=== PATIENT | female | born 1995 | race Caucasian/White ===

== ENCOUNTER → 2020-09-05 | Day surgery (SDC) | payer BC ==
[~2020-09-05] MED LIST: Bupivacaine 0.5%/EPINEPHrine 1:200,000 50 ML MDV ONE; Dexamethasone 4 MG/ML 5 ML MDV ONE; Diatrizoate Meglumine/Diatrizoate Sodium 37% 120 ML Bottle PO ONE; HYDROmorphone 0.5 MG/0.5 ML Syringe IVPUSH PRN; Iopamidol 612 MG/ML 100 ML Bottle IVPUSH ONE; Ketorolac 30 MG/ML SDV ONE; Lactated Ringers 1,000 ML IV SCH; Lactated Ringers 1,000 ML ONE; Lidocaine 1% 4 ML ONE; Midazolam 1 MG/ML 2 ML SDV ONE; Ondansetron 4 MG/2 ML SDV IVPUSH ONE; Ondansetron 4 MG/2 ML SDV ONE; Propofol 200 MG/20 ML SDV ONE; Rocuronium 50 MG/5 ML Vial ONE; Sodium Chloride 0.9% 1,000 ML IV STA; Sodium Chloride 0.9% 10 ML Syringe FLUSH SCH; Succinylcholine/Sod PF 100 MG/5 ML SYRINGE IV ONE; cefOXitin 1 GM in Premix Bag 1 BAG IV ONE; diphenhydrAMINE 50 MG/ML SDV IVPUSH PRN; ePHEDrine 50 MG/ML SDV IVPUSH PRN; fentaNYL 100 MCG/2 ML SDV IVPUSH PRN; fentaNYL 250 MCG/5 ML SDV ONE
[2020-09-05] MEDS: Sodium Chloride 0.9% 10 ML Syringe FLUSH PRN ×2 (10:24→12:00)
--- NOTE | 2020-09-05 10:29 | EDM.PDOC ---
ED HPI GENERAL MEDICAL PROBLEM - General Chief Complaint: Abdominal Pain Stated Complaint: LOW ABDOMINAL PAIN Time Seen by Provider: 09/05/20 10:00 Source of Information: Reports: Patient History Limitations: Reports: No Limitations - History of Present Illness INITIAL COMMENTS - FREE TEXT/NARRATIVE: The patient presents with lower abdominal pain. This started late Sunday night with nausea. She has no vomiting. Yesterday the pain would come and go and today it is constant. She has no dysuria or diarrhea. Her last normal menstrual period was 08/11. She says there is a possibility she is . She has no fever, chills, cough, chest pain, or shortness of breath. She still has her appendix and gallbladder. Onset: Gradual Duration: Day(s): (2) Location: Reports: Abdomen Quality: Reports: Sharp Severity: Moderate Improves with: Reports: None Worsens with: Reports: None Associated Symptoms: Reports: Nausea/Vomiting. Denies: Chest Pain, Cough, Fever/Chills, Headaches, Shortness of Breath Lower Abdomen Pain Score (Numeric/FACES): 2 - Related Data Allergies Allergy/AdvReac Type Severity Reaction Status Date / Time amoxicillin Allergy Rash Verified 09/05/20 10:04 Home Meds: Home Meds . [No Known Home Meds] 09/05/20 [History] Past Medical History - Past Health History Medical/Surgical History: Denies Medical/Surgical History Social & Family History - Tobacco Use Tobacco Use Status *Q: Never Tobacco User - Recreational Drug Use Recreational Drug Use: No ED ROS GENERAL - Review of Systems Review Of Systems: See Below Constitutional: Reports: No Symptoms HEENT: Reports: No Symptoms Respiratory: Reports: No Symptoms Cardiovascular: Reports: No Symptoms Endocrine: Reports: No Symptoms GI/Abdominal: Reports: Abdominal Pain, Nausea. Denies: Diarrhea, Vomiting : Reports: No Symptoms Musculoskeletal: Reports: No Symptoms ED EXAM, GI/ABD - Physical Exam Exam: See Below Exam Limited By: No Limitations General Appearance: Alert, No Apparent Distress Ears: Normal External Exam Nose: Normal Inspection Head: Atraumatic, Normocephalic Neck: Normal Inspection Respiratory/Chest: No Respiratory Distress, Lungs Clear, Normal Breath Sounds Cardiovascular: Regular Rate, Rhythm, No Edema, No Murmur GI/Abdominal Exam: Soft, No Organomegaly, No Mass, Tender (Moderate tenderness to the right lower abdomen) Back Exam: Normal Inspection Extremities: Normal Inspection Course - Vital Signs Last Recorded V/S: Last Vital Signs Temp 98 F 09/05/20 10:02 Pulse 66 09/05/20 10:02 Resp 16 09/05/20 10:02 BP 130/94 H 09/05/20 10:02 Pulse Ox 97 09/05/20 10:02 - Orders/Labs/Meds Orders: Active Orders 24 hr Category Date Time Status Patient Status [ADT] Routine ADT 09/05/20 13:12 Active Peripheral IV Care [RC] . DIRECTED Care 09/05/20 10:16 Active Abdomen Pelvis w Cont [CT] Stat Exams 09/05/20 10:16 Taken CORONAVIRUS COVID-19 CHRISTOS [MOLEC] Stat Lab 09/05/20 12:30 Ordered Lactated Ringers [Ringers, Lactated] 1,000 ml Med 09/05/20 12:45 Active IV ASDIRECTED Sodium Chloride 0.9% [Saline Flush] Med 09/05/20 12:00 Active 10 ml FLUSH ASDIRECTED Sodium Chloride 0.9% [Saline Flush] Med 09/05/20 10:16 Active 10 ml FLUSH ASDIRECTED PRN ED Antiemetic Medication Reflex [OM.PC] Stat Oth 09/05/20 10:16 Ordered Peripheral IV Insertion Adult [OM.PC] Stat Oth 09/05/20 10:16 Ordered Schedule Procedure [COMM] Stat Ot 09/05/20 13:12 Ordered Medication Orders Lactated Ringer's (Ringers, Lactated) 1,000 mls @ 75 mls/hr IV ASDIRECTED [facility] Last Admin: 09/05/20 12:43 Dose: 75 mls/hr Documented by: BERYL Sodium Chloride (Sodium Chloride 0.9% 10 Ml Syringe) 10 ml FLUSH ASDIRECTED PRN PRN Reason: Keep Vein Open Last Admin: 09/05/20 12:00 Dose: 10 ml Documented by: Admin: 09/05/20 10:24 Dose: 10 ml Documented by: BERYL Sodium Chloride (Sodium Chloride 0.9% 10 Ml Syringe) 10 ml FLUSH ASDIRECTED [facility] Labs: Laboratory Tests 09/05/20 09/05/20 09/05/20 Range/Units 10:20 10:25 10:25 WBC 5.67 (3.98-10.04) K/mm3 RBC 4.60 (3.98-5.22) M/mm3 Hgb 14.7 (11.2-15.7) gm/dl Hct 42.3 (34.1-44.9) % MCV 92.0 (79.4-94.8) fl MCH 32.0 (25.6-32.2) pg MCHC 34.8 (32.2-35.5) g/dl RDW Std Deviation 41.6 (36.4-46.3) fL Plt Count 182 (182-369) K/mm3 MPV 11.0 (9.4-12.3) fl Neut % (Auto) 56.4 (34.0-71.1) % Lymph % (Auto) 30.9 (19.3-51.7) % [place] % (Auto) 9.0 (4.7-12.5) % Eos % (Auto) 2.6 (0.7-5.8) Baso % (Auto) 1.1 (0.1-1.2) % Neut # (Auto) 3.20 (1.56-6.13) K/mm3 Lymph # (Auto) 1.75 (1.18-3.74) K/mm3 [place] # (Auto) 0.51 H (0.24-0.36) K/mm3 Eos # (Auto) 0.15 (0.04-0.36) K/mm3 Baso # (Auto) 0.06 (0.01-0.08) K/mm3 Sodium 143 (136-145) mEq/L Potassium 4.1 (3.5-5.1) mEq/L Chloride 107 (98-107) mEq/L Carbon Dioxide 26 (21-32) mEq/L Anion Gap 14.1 (5-15) BUN 16 (7-18) mg/dL Creatinine 1.0 (0.55-1.02) mg/dL Est Cr Clr Drug Dosing 60.70 mL/min Estimated GFR (MDRD) > 60 (>60) mL/min BUN/Creatinine Ratio 16.0 (14-18) Glucose 93 (70-99) mg/dL Calcium 8.7 (8.5-10.1) mg/dL Total Bilirubin 1.1 H (0.2-1.0) mg/dL AST 14 L (15-37) U/L ALT 20 (14-59) U/L Alkaline Phosphatase 69 (46-116) U/L Total Protein 7.3 (6.4-8.2) g/dl Albumin 4.2 (3.4-5.0) g/dl Globulin 3.1 gm/dL Albumin/Globulin Ratio 1.4 (1-2) Lipase 121 (73-393) U/L HCG, Qual (NEGATIVE) Urine Color Yellow (Yellow) Urine Appearance Clear (Clear) Urine pH 6.5 (5.0-8.0) Ur Specific [place] > or = 1.030 (1.005-1.030) Urine Protein Negative (Negative) Urine Glucose (UA) Negative (Negative) Urine Ketones Negative (Negative) Urine Occult Blood Negative (Negative) Urine Nitrite Negative (Negative) Urine Bilirubin Negative (Negative) Urine Urobilinogen 0.2 (0.2-1.0) Ur Leukocyte Esterase Negative (Negative) Urine RBC 0-5 (0-5) /hpf Urine WBC 0-5 (0-5) /hpf Ur Squamous Epith Cells 0-5 (0-5) /hpf Urine Bacteria Moderate H (FEW) /hpf Urine Mucus Few (FEW) /hpf 09/05/20 Range/Units 10:25 WBC (3.98-10.04) K/mm3 RBC (3.98-5.22) M/mm3 Hgb (11.2-15.7) gm/dl Hct (34.1-44.9) % MCV (79.4-94.8) fl MCH (25.6-32.2) pg MCHC (32.2-35.5) g/dl RDW Std Deviation (36.4-46.3) fL Plt Count (182-369) K/mm3 MPV (9.4-12.3) fl Neut % (Auto) (34.0-71.1) % Lymph % (Auto) (19.3-51.7) % [place] % (Auto) (4.7-12.5) % Eos % (Auto) (0.7-5.8) Baso % (Auto) (0.1-1.2) % Neut # (Auto) (1.56-6.13) K/mm3 Lymph # (Auto) (1.18-3.74) K/mm3 [place] # (Auto) (0.24-0.36) K/mm3 Eos # (Auto) (0.04-0.36) K/mm3 Baso # (Auto) (0.01-0.08) K/mm3 Sodium (136-145) mEq/L Potassium (3.5-5.1) mEq/L Chloride (98-107) mEq/L Carbon Dioxide (21-32) mEq/L Anion Gap (5-15) BUN (7-18) mg/dL Creatinine (0.55-1.02) mg/dL Est Cr Clr Drug Dosing mL/min Estimated GFR (MDRD) (>60) mL/min BUN/Creatinine Ratio (14-18) Glucose (70-99) mg/dL Calcium (8.5-10.1) mg/dL Total Bilirubin (0.2-1.0) mg/dL AST (15-37) U/L ALT (14-59) U/L Alkaline Phosphatase (46-116) U/L Total Protein (6.4-8.2) g/dl Albumin (3.4-5.0) g/dl Globulin gm/dL Albumin/Globulin Ratio (1-2) Lipase (73-393) U/L HCG, Qual Negative (NEGATIVE) Urine Color (Yellow) Urine Appearance (Clear) Urine pH (5.0-8.0) Ur Specific [place] (1.005-1.030) Urine Protein (Negative) Urine Glucose (UA) (Negative) Urine Ketones (Negative) Urine Occult Blood (Negative) Urine Nitrite (Negative) Urine Bilirubin (Negative) Urine Urobilinogen (0.2-1.0) Ur Leukocyte Esterase (Negative) Urine RBC (0-5) /hpf Urine WBC (0-5) /hpf Ur Squamous Epith Cells (0-5) /hpf Urine Bacteria (FEW) /hpf Urine Mucus (FEW) /hpf Meds: Medications Generic Name Dose Route Start Last Admin Trade Name Freq PRN Reason Stop Dose Admin Lactated Ringer's 1,000 mls @ 75 mls/hr 09/05/20 12:45 09/05/20 12:43 Ringers, Lactated IV 75 mls/hr ASDIRECTED ARTIE Administration Sodium Chloride 10 ml 09/05/20 10:16 09/05/20 12:00 Sodium Chloride 0.9% 10 Ml Syringe FLUSH 10 ml ASDIRECTED PRN Administration Keep Vein Open Sodium Chloride 10 ml 09/05/20 12:00 Sodium Chloride 0.9% 10 Ml Syringe FLUSH ASDIRECTED ARTIE Discontinued Medications Generic Name Dose Route Start Last Admin Trade Name Freq PRN Reason Stop Dose Admin Diatrizoate Meglum/Diatrizoate Sod 120 ml 09/05/20 11:54 09/05/20 12:00 Diatrizoate Meglumine/Diatrizoate Sodium 37% 120 Ml Bottle PO 09/05/20 11:55 90 ml ONETIME ONE Administration Sodium Chloride 1,000 mls @ 1,000 mls/hr 09/05/20 10:16 09/05/20 10:24 Normal Saline IV 09/05/20 11:15 1,000 mls/hr .BOLUS STA Administration Iopamidol 100 ml 09/05/20 11:54 09/05/20 12:00 Iopamidol 612 Mg/Ml 100 Ml Bottle IVPUSH 09/05/20 11:55 100 ml ONETIME ONE Administration Ondansetron HCl 4 mg 09/05/20 10:16 09/05/20 10:24 Ondansetron 4 Mg/2 Ml Sdv IVPUSH 09/05/20 10:17 4 mg ONETIME ONE Administration - Re-Assessments/Exams Free Text/Narrative Re-Assessment/Exam: 09/05/20 10:28 I ordered an IV NS 1L bolus, zofran 4mg IV, labs, UA and a CT of her abdomen and pelvis. 09/05/20 13:14 Her CBC and CMP looks good. Her UA shows no UTI. HCG is negative. The CT shows acute appendicitis without evidence of perforation. Small amount of free fluid in the pelvis. I called Dr Rodrigues and he will come see the patient. Departure - Departure Time of Disposition: 13:35 Disposition: DC/Tfer to [facility] Condition: Fair Clinical Impression: Appendicitis Qualifiers: Appendicitis type: acute appendicitis Acute appendicitis type: with localized peritonitis Appendicitis gangrene presence: without gangrene Appendicitis perforation presence: without perforation Appendicitis abscess presence: without abscess Qualified Code(s): K35.30 - Acute appendicitis with localized peritonitis, without perforation or gangrene - Discharge Information Referrals: PCP,Not In Area [Primary Care Provider] - Forms: ED Department Discharge Sepsis Event Note (ED) - Evaluation Sepsis Screening Result: No Definite Risk - Focused Exam Vital Signs: Vital Signs Temp Pulse Resp BP Pulse Ox 09/05/20 10:02 98 F 66 16 130/94 H 97 - My Orders Last 24 Hours: My Active Orders 09/05/20 10:16 Peripheral IV Care [RC] . DIRECTED Abdomen Pelvis w Cont [CT] Stat Sodium Chloride 0.9% [Saline Flush] 10 ml FLUSH ASDIRECTED PRN ED Antiemetic Medication Reflex [OM.PC] Stat Peripheral IV Insertion Adult [OM.PC] Stat 09/05/20 12:00 Sodium Chloride 0.9% [Saline Flush] 10 ml FLUSH ASDIRECTED 09/05/20 12:30 CORONAVIRUS COVID-19 CHRISTOS [MOLEC] Stat 09/05/20 12:45 Lactated Ringers [Ringers, Lactated] 1,000 ml IV ASDIRECTED 09/05/20 13:12 Patient Status [ADT] Routine Schedule Procedure [COMM] Stat - Assessment/Plan Last 24 Hours: My Active Orders 09/05/20 10:16 Peripheral IV Care [RC] . DIRECTED Abdomen Pelvis w Cont [CT] Stat Sodium Chloride 0.9% [Saline Flush] 10 ml FLUSH ASDIRECTED PRN ED Antiemetic Medication Reflex [OM.PC] Stat Peripheral IV Insertion Adult [OM.PC] Stat 09/05/20 12:00 Sodium Chloride 0.9% [Saline Flush] 10 ml FLUSH ASDIRECTED 09/05/20 12:30 CORONAVIRUS COVID-19 CHRISTOS [MOLEC] Stat 09/05/20 12:45 Lactated Ringers [Ringers, Lactated] 1,000 ml IV ASDIRECTED 09/05/20 13:12 Patient Status [ADT] Routine Schedule Procedure [COMM] Stat
--- NOTE | 2020-09-05 13:22 | CT ---
CT abdomen and pelvis Technique: Multiple axial sections were obtained from above the dome of the diaphragm inferiorly through the pubic symphysis. Intravenous and oral contrast were utilized. Delayed images were obtained through the bladder. Comparison: No prior abdominal or pelvic imaging is available. Findings: Appendix is dilated. Minimal free fluid is seen off the tip of the cecum. Findings are compatible with appendicitis. Visualized lung bases shows nothing acute. Liver contains no focal abnormality. Spleen is within normal limits. Gallbladder contains no gallstones. Adrenal glands show no nodule. Kidneys show symmetric contrast enhancement without hydronephrosis or mass. Abdominal aorta shows no aneurysm. Pancreas shows no discrete abnormality. No retroperitoneal adenopathy or mesenteric abnormalities are seen. No pelvic mass or adenopathy is seen. Delayed images show contrast within the distal ureters and within the bladder. Bone window settings were reviewed which show no acute osseous abnormality. Impression: 1. Findings compatible with appendicitis. Small amount of free fluid is seen. 2. No additional abnormality is identified on CT study of the abdomen and pelvis. Diagnostic code #5 I agree with preliminary report from [facility], finalized on 09/05/20, 1:28 PM CDT, code 1
--- NOTE | 2020-09-05 13:28 | PCM.PREANE ---
Preanesthetic Assessment - Procedure Proposed Procedure: Laparoscopic Appendectomy - Anesthesia/Transfusion/Family Hx Anesthesia History: Prior Anesthesia Without Reaction Family History of Anesthesia Reaction: No Transfusion History: No Prior Transfusion(s) Intubation History: Unknown - Review of Systems General: No Symptoms Pulmonary: No Symptoms (ETOH: Occasionally) Cardiovascular: No Symptoms Gastrointestinal: No Symptoms, Decreased Appetite Neurological: No Symptoms Other: Reports: None, Anxiety - Physical Assessment NPO Status Date: 09/05/20 NPO Status Time: 12:00 (oral contrast) Vital Signs: Last Vital Signs Temp 36.6 C 09/05/20 10:02 Pulse 66 09/05/20 10:02 Resp 16 09/05/20 10:02 BP 130/94 H 09/05/20 10:02 Pulse Ox 97 09/05/20 10:02 Height: 1.52 m Weight: 54.431 kg ASA Class: 1E Mental Status: Alert & Oriented x3 Airway Class: Mallampati = 2 Dentition: Reports: Normal Dentition, Caries Thyro-Mental Finger Breadths: 3 Mouth Opening Finger Breadths: 3 ROM/Head Extension: Full Lungs: Clear to Auscultation, Normal Respiratory Effort Cardiovascular: Regular Rate, Regular Rhythm, No Murmurs - Lab Values: Laboratory Last Values WBC 5.67 K/mm3 (3.98-10.04) 09/05/20 10:25 RBC 4.60 M/mm3 (3.98-5.22) 09/05/20 10:25 Hgb 14.7 gm/dl (11.2-15.7) 09/05/20 10:25 Hct 42.3 % (34.1-44.9) 09/05/20 10:25 MCV 92.0 fl (79.4-94.8) 09/05/20 10:25 MCH 32.0 pg (25.6-32.2) 09/05/20 10:25 MCHC 34.8 g/dl (32.2-35.5) 09/05/20 10:25 RDW Std Deviation 41.6 fL (36.4-46.3) 09/05/20 10:25 Plt Count 182 K/mm3 (182-369) 09/05/20 10:25 MPV 11.0 fl (9.4-12.3) 09/05/20 10:25 Neut % (Auto) 56.4 % (34.0-71.1) 09/05/20 10:25 Lymph % (Auto) 30.9 % (19.3-51.7) 09/05/20 10:25 [place] % (Auto) 9.0 % (4.7-12.5) 09/05/20 10:25 Eos % (Auto) 2.6 (0.7-5.8) 09/05/20 10:25 Baso % (Auto) 1.1 % (0.1-1.2) 09/05/20 10:25 Neut # (Auto) 3.20 K/mm3 (1.56-6.13) 09/05/20 10:25 Lymph # (Auto) 1.75 K/mm3 (1.18-3.74) 09/05/20 10:25 [place] # (Auto) 0.51 K/mm3 (0.24-0.36) H 09/05/20 10:25 Eos # (Auto) 0.15 K/mm3 (0.04-0.36) 09/05/20 10:25 Baso # (Auto) 0.06 K/mm3 (0.01-0.08) 09/05/20 10:25 Sodium 143 mEq/L (136-145) 09/05/20 10:25 Potassium 4.1 mEq/L (3.5-5.1) 09/05/20 10:25 Chloride 107 mEq/L (98-107) 09/05/20 10:25 Carbon Dioxide 26 mEq/L (21-32) 09/05/20 10:25 Anion Gap 14.1 (5-15) 09/05/20 10:25 BUN 16 mg/dL (7-18) 09/05/20 10:25 Creatinine 1.0 mg/dL (0.55-1.02) 09/05/20 10:25 Est Cr Clr Drug Dosing 60.70 mL/min 09/05/20 10:25 Estimated GFR (MDRD) > 60 mL/min (>60) 09/05/20 10:25 BUN/Creatinine Ratio 16.0 (14-18) 09/05/20 10:25 Glucose 93 mg/dL (70-99) 09/05/20 10:25 Calcium 8.7 mg/dL (8.5-10.1) 09/05/20 10:25 Total Bilirubin 1.1 mg/dL (0.2-1.0) H 09/05/20 10:25 AST 14 U/L (15-37) L 09/05/20 10:25 ALT 20 U/L (14-59) 09/05/20 10:25 Alkaline Phosphatase 69 U/L (46-116) 09/05/20 10:25 Total Protein 7.3 g/dl (6.4-8.2) 09/05/20 10:25 Albumin 4.2 g/dl (3.4-5.0) 09/05/20 10:25 Globulin 3.1 gm/dL 09/05/20 10:25 Albumin/Globulin Ratio 1.4 (1-2) 09/05/20 10:25 Lipase 121 U/L (73-393) 09/05/20 10:25 HCG, Qual Negative (NEGATIVE) 09/05/20 10:25 Urine Color Yellow (Yellow) 09/05/20 10:20 Urine Appearance Clear (Clear) 09/05/20 10:20 Urine pH 6.5 (5.0-8.0) 09/05/20 10:20 Ur Specific [place] > or = 1.030 (1.005-1.030) 09/05/20 10:20 Urine Protein Negative (Negative) 09/05/20 10:20 Urine Glucose (UA) Negative (Negative) 09/05/20 10:20 Urine Ketones Negative (Negative) 09/05/20 10:20 Urine Occult Blood Negative (Negative) 09/05/20 10:20 Urine Nitrite Negative (Negative) 09/05/20 10:20 Urine Bilirubin Negative (Negative) 09/05/20 10:20 Urine Urobilinogen 0.2 (0.2-1.0) 09/05/20 10:20 Ur Leukocyte Esterase Negative (Negative) 09/05/20 10:20 Urine RBC 0-5 /hpf (0-5) 09/05/20 10:20 Urine WBC 0-5 /hpf (0-5) 09/05/20 10:20 Ur Squamous Epith Cells 0-5 /hpf (0-5) 09/05/20 10:20 Urine Bacteria Moderate /hpf (FEW) H 09/05/20 10:20 Urine Mucus Few /hpf (FEW) 09/05/20 10:20 SARS-CoV-2 RNA (CHRISTOS) Negative (NEGATIVE) 09/05/20 12:30 Above labs reviewed and noted and within acceptable ranges to proceed with procedure. - Allergies Allergies/Adverse Reactions: Allergies Allergy/AdvReac Type Severity Reaction Status Date / Time amoxicillin Allergy Rash Verified 09/05/20 10:04 - Anesthesia Plan Pre-Op Medication Ordered: None - Acknowledgements Anesthesia Type Planned: General Anesthesia Pt an Appropriate Candidate for the Planned Anesthesia: Yes Alternatives and Risks of Anesthesia Discussed w Pt/Guardian: Yes Pt/Guardian Understands and Agrees with Anesthesia Plan: Yes PreAnesthesia Questionnaire - Past Health History Medical/Surgical History: Denies Medical/Surgical History - SUBSTANCE USE Tobacco Use Status *Q: Never Tobacco User Recreational Drug Use History: No - HOME MEDS Home Medications: Home Meds . [No Known Home Meds] 09/05/20 [History] - CURRENT (IN HOUSE) MEDS Current Meds: Current Medications Lactated Ringer's (Ringers, Lactated) 1,000 mls @ 75 mls/hr IV ASDIRECTED ARTIE Last Admin: 09/05/20 12:43 Dose: 75 mls/hr Documented by: Sodium Chloride (Sodium Chloride 0.9% 10 Ml Syringe) 10 ml FLUSH ASDIRECTED PRN PRN Reason: Keep Vein Open Last Admin: 09/05/20 12:00 Dose: 10 ml Documented by: Sodium Chloride (Sodium Chloride 0.9% 10 Ml Syringe) 10 ml FLUSH ASDIRECTED ARTIE Discontinued Medications Diatrizoate Meglum/Diatrizoate Sod (Diatrizoate Meglumine/Diatrizoate Sodium 37% 120 Ml Bottle) 120 ml PO ONETIME ONE Stop: 09/05/20 11:55 Last Admin: 09/05/20 12:00 Dose: 90 ml Documented by: Sodium Chloride (Normal Saline) 1,000 mls @ 1,000 mls/hr IV .BOLUS STA Stop: 09/05/20 11:15 Last Admin: 09/05/20 10:24 Dose: 1,000 mls/hr Documented by: Iopamidol (Iopamidol 612 Mg/Ml 100 Ml Bottle) 100 ml IVPUSH ONETIME ONE Stop: 09/05/20 11:55 Last Admin: 09/05/20 12:00 Dose: 100 ml Documented by: Ondansetron HCl (Ondansetron 4 Mg/2 Ml Sdv) 4 mg IVPUSH ONETIME ONE Stop: 09/05/20 10:17 Last Admin: 09/05/20 10:24 Dose: 4 mg Documented by:
--- NOTE | 2020-09-05 13:50 | PCM.HP.2 ---
H&P History of Present Illness - General Date of Service: 09/05/20 Admit Problem/Dx: Admission Diagnosis/Problem Admission Diagnosis/Problem Appendicitis Source of Information: Patient, Provider History Limitations: Reports: No Limitations - History of Present Illness Initial Comments - Free Text/Narative: Ms. Jamison is a 25 yo woman who developed lower abdominal pain nearly 48 hours ago. The pain is now localized in the right lower quadrant. CT imaging done in the ER today shows evidence of acute appendicitis. The patient is otherwise healthy, takes no medications, has an allergy to amoxicillin (rxn: rash), has had wisdom tooth extraction, denies tobacco and drug use and has no significant family medical history. Lower Abdomen Pain Score (Numeric/FACES): 2 - Related Data Allergies/Adverse Reactions: Allergies Allergy/AdvReac Type Severity Reaction Status Date / Time amoxicillin Allergy Rash Verified 09/05/20 10:04 Home Medications: Home Meds . [No Known Home Meds] 09/05/20 [History] Past Medical History - Past Health History Medical/Surgical History: Denies Medical/Surgical History Social & Family History - Tobacco Use Tobacco Use Status *Q: Never Tobacco User - Recreational Drug Use Recreational Drug Use: No H&P Review of Systems - Review of Systems: Review Of Systems: See Below General: Reports: No Symptoms HEENT: Reports: No Symptoms Pulmonary: Reports: No Symptoms Cardiovascular: Reports: No Symptoms Gastrointestinal: Reports: Abdominal Pain Genitourinary: Reports: No Symptoms Musculoskeletal: Reports: No Symptoms Skin: Reports: No Symptoms Psychiatric: Reports: No Symptoms Neurological: Reports: No Symptoms Hematologic/Lymphatic: Reports: No Symptoms Immunologic: Reports: No Symptoms Exam - Exam Exam: See Below - Vital Signs Vital Signs: Last Vital Signs Temp 36.6 C 09/05/20 10:02 Pulse 66 09/05/20 10:02 Resp 16 09/05/20 10:02 BP 130/94 H 09/05/20 10:02 Pulse Ox 97 09/05/20 10:02 Weight: 54.431 kg - Exam General: Alert, Oriented, Cooperative HEENT: Conjunctiva Clear Neck: Trachea Midline Lungs: Clear to Auscultation, Normal Respiratory Effort Cardiovascular: Regular Rate, Regular Rhythm GI/Abdominal Exam: Soft, Non-Tender, No Mass, Other (minimal right lower quadrant tenderness on palpation) Extremities: Normal Inspection Skin: Warm, Dry Neuro Extensive - Mental Status: Alert, Oriented x3 Psychiatric: Normal Mood - Patient Data Lab Results Last 24 hrs: Laboratory Results - last 24 hr 09/05/20 09/05/20 09/05/20 Range/Units 10:20 10:25 10:25 WBC 5.67 (3.98-10.04) K/mm3 RBC 4.60 (3.98-5.22) M/mm3 Hgb 14.7 (11.2-15.7) gm/dl Hct 42.3 (34.1-44.9) % MCV 92.0 (79.4-94.8) fl MCH 32.0 (25.6-32.2) pg MCHC 34.8 (32.2-35.5) g/dl RDW Std Deviation 41.6 (36.4-46.3) fL Plt Count 182 (182-369) K/mm3 MPV 11.0 (9.4-12.3) fl Neut % (Auto) 56.4 (34.0-71.1) % Lymph % (Auto) 30.9 (19.3-51.7) % Nuckolls % (Auto) 9.0 (4.7-12.5) % Eos % (Auto) 2.6 (0.7-5.8) Baso % (Auto) 1.1 (0.1-1.2) % Neut # (Auto) 3.20 (1.56-6.13) K/mm3 Lymph # (Auto) 1.75 (1.18-3.74) K/mm3 Nuckolls # (Auto) 0.51 H (0.24-0.36) K/mm3 Eos # (Auto) 0.15 (0.04-0.36) K/mm3 Baso # (Auto) 0.06 (0.01-0.08) K/mm3 Sodium 143 (136-145) mEq/L Potassium 4.1 (3.5-5.1) mEq/L Chloride 107 (98-107) mEq/L Carbon Dioxide 26 (21-32) mEq/L Anion Gap 14.1 (5-15) BUN 16 (7-18) mg/dL Creatinine 1.0 (0.55-1.02) mg/dL Est Cr Clr Drug Dosing 60.70 mL/min Estimated GFR (MDRD) > 60 (>60) mL/min BUN/Creatinine Ratio 16.0 (14-18) Glucose 93 (70-99) mg/dL Calcium 8.7 (8.5-10.1) mg/dL Total Bilirubin 1.1 H (0.2-1.0) mg/dL AST 14 L (15-37) U/L ALT 20 (14-59) U/L Alkaline Phosphatase 69 (46-116) U/L Total Protein 7.3 (6.4-8.2) g/dl Albumin 4.2 (3.4-5.0) g/dl Globulin 3.1 gm/dL Albumin/Globulin Ratio 1.4 (1-2) Lipase 121 (73-393) U/L HCG, Qual (NEGATIVE) Urine Color Yellow (Yellow) Urine Appearance Clear (Clear) Urine pH 6.5 (5.0-8.0) Ur Specific Starlight > or = 1.030 (1.005-1.030) Urine Protein Negative (Negative) Urine Glucose (UA) Negative (Negative) Urine Ketones Negative (Negative) Urine Occult Blood Negative (Negative) Urine Nitrite Negative (Negative) Urine Bilirubin Negative (Negative) Urine Urobilinogen 0.2 (0.2-1.0) Ur Leukocyte Esterase Negative (Negative) Urine RBC 0-5 (0-5) /hpf Urine WBC 0-5 (0-5) /hpf Ur Squamous Epith Cells 0-5 (0-5) /hpf Urine Bacteria Moderate H (FEW) /hpf Urine Mucus Few (FEW) /hpf SARS-CoV-2 RNA (CHRISTOS) (NEGATIVE) 09/05/20 09/05/20 Range/Units 10:25 12:30 WBC (3.98-10.04) K/mm3 RBC (3.98-5.22) M/mm3 Hgb (11.2-15.7) gm/dl Hct (34.1-44.9) % MCV (79.4-94.8) fl MCH (25.6-32.2) pg MCHC (32.2-35.5) g/dl RDW Std Deviation (36.4-46.3) fL Plt Count (182-369) K/mm3 MPV (9.4-12.3) fl Neut % (Auto) (34.0-71.1) % Lymph % (Auto) (19.3-51.7) % Nuckolls % (Auto) (4.7-12.5) % Eos % (Auto) (0.7-5.8) Baso % (Auto) (0.1-1.2) % Neut # (Auto) (1.56-6.13) K/mm3 Lymph # (Auto) (1.18-3.74) K/mm3 Nuckolls # (Auto) (0.24-0.36) K/mm3 Eos # (Auto) (0.04-0.36) K/mm3 Baso # (Auto) (0.01-0.08) K/mm3 Sodium (136-145) mEq/L Potassium (3.5-5.1) mEq/L Chloride (98-107) mEq/L Carbon Dioxide (21-32) mEq/L Anion Gap (5-15) BUN (7-18) mg/dL Creatinine (0.55-1.02) mg/dL Est Cr Clr Drug Dosing mL/min Estimated GFR (MDRD) (>60) mL/min BUN/Creatinine Ratio (14-18) Glucose (70-99) mg/dL Calcium (8.5-10.1) mg/dL Total Bilirubin (0.2-1.0) mg/dL AST (15-37) U/L ALT (14-59) U/L Alkaline Phosphatase (46-116) U/L Total Protein (6.4-8.2) g/dl Albumin (3.4-5.0) g/dl Globulin gm/dL Albumin/Globulin Ratio (1-2) Lipase (73-393) U/L HCG, Qual Negative (NEGATIVE) Urine Color (Yellow) Urine Appearance (Clear) Urine pH (5.0-8.0) Ur Specific Starlight (1.005-1.030) Urine Protein (Negative) Urine Glucose (UA) (Negative) Urine Ketones (Negative) Urine Occult Blood (Negative) Urine Nitrite (Negative) Urine Bilirubin (Negative) Urine Urobilinogen (0.2-1.0) Ur Leukocyte Esterase (Negative) Urine RBC (0-5) /hpf Urine WBC (0-5) /hpf Ur Squamous Epith Cells (0-5) /hpf Urine Bacteria (FEW) /hpf Urine Mucus (FEW) /hpf SARS-CoV-2 RNA (CHRISTOS) Negative (NEGATIVE) Result Diagrams: 09/05/20 10:25 09/05/20 10:25 Sepsis Event Note - Evaluation Sepsis Screening Result: No Definite Risk - Focused Exam Vital Signs: Vital Signs Temp Pulse Resp BP Pulse Ox 09/05/20 10:02 36.6 C 66 16 130/94 H 97 Problem List Initiated/Reviewed/Updated: Yes Orders Last 24hrs: Active Orders 24 hr Category Date Time Status Patient Status [ADT] Routine ADT 09/05/20 13:12 Active Peripheral IV Care [RC] . DIRECTED Care 09/05/20 10:16 Active Lactated Ringers [Ringers, Lactated] 1,000 ml Med 09/05/20 12:45 Active IV ASDIRECTED Sodium Chloride 0.9% [Saline Flush] Med 09/05/20 12:00 Active 10 ml FLUSH ASDIRECTED Sodium Chloride 0.9% [Saline Flush] Med 09/05/20 10:16 Active 10 ml FLUSH ASDIRECTED PRN cefOXitin [Mefoxin in Dextrose,Iso-Osm 1 GM/50 ML] 1 gm Med 09/05/20 13:46 Ordered Premix Bag 1 bag IV ONETIME ED Antiemetic Medication Reflex [OM.PC] Stat Oth 09/05/20 10:16 Ordered Peripheral IV Insertion Adult [OM.PC] Stat Ot 09/05/20 10:16 Ordered Schedule Procedure [COMM] Stat Ot 09/05/20 13:12 Ordered Medication Orders Lactated Ringer's (Ringers, Lactated) 1,000 mls @ 75 mls/hr IV ASDIRECTED [facility] Last Admin: 09/05/20 12:43 Dose: 75 mls/hr Documented by: BERYL Sodium Chloride (Sodium Chloride 0.9% 10 Ml Syringe) 10 ml FLUSH ASDIRECTED PRN PRN Reason: Keep Vein Open Last Admin: 09/05/20 12:00 Dose: 10 ml Documented by: Admin: 09/05/20 10:24 Dose: 10 ml Documented by: BERYL Sodium Chloride (Sodium Chloride 0.9% 10 Ml Syringe) 10 ml FLUSH ASDIRECTED [facility] Assessment/Plan Comment:: Acute appendicitis Plan for laparoscopic appendectomy. Anticipate discharge to home from recovery unit. - Mortality Measure Prognosis:: Good
--- NOTE | 2020-09-05 15:01 | PCM.PRNOTE ---
- Free Text/Narrative Note: Date: 09/05/2020 Operation: laparoscopic appendectomy Surgeon: Jatin Rodrigues Antibiotic: cefoxitin 1 g EBL: minimal Findings: uncomplicated acute appendicitis Detailed Report: The patient was taken to the operating room and placed in supine position on the table. Timeout was performed and general endotracheal anesthesia was initiated. The patient's left arm was tucked at her side. The abdomen was prepped and draped in usual sterile fashion. A Veress needle was placed in the left upper quadrant in order to establish pneumoperitoneum. Once pressure reached 15 mmHg, air was aspirated with a needle and syringe just inferior to the umbilicus. A 2 cm curvilinear incision was made just inferior to the umbilicus and a bladed 12 mm trocar was inserted. A 5 mm 30 degree laparoscope was inserted into the abdomen. There was no apparent injury from Veress needle placement and the needle was removed under laparoscopic visualization. Additional 5 mm ports were placed in the suprapubic region in the left lower quadrant. The patient was positioned in Trendelenburg and rotated towards the surgeon standing on the patient's left side. The appendix was readily seen coming off the base of the cecum. There was mild inflammatory change noted. A window was made at the mesoappendix at its base. A single 30 mm vascular load on the powered laparoscopic linear stapler was used to divide the appendix at its base. The mesoappendix was divided using the [place] LigaSure. The specimen was placed in an Endo Catch bag and removed through the umbilical port site. The dissection field appeared clean and dry. The 12 mm port was removed and fascia was closed at this site with 0 Vicryl using a laparoscopic suture passer. The suprapubic port was removed under laparoscopic visualization and hemostasis was satisfactory. Pneumoperitoneum was released. All ports were removed and skin was closed with running subcuticular Vicryl suture. Wounds were dressed with Dermabond. A total of 20 cc 0.5% Marcaine with epinephrine was used for local anesthetic throughout the case. The patient tolerated the procedure well.
--- NOTE | 2020-09-05 15:09 | PCM.POSTAN ---
POST ANESTHESIA ASSESSMENT - MENTAL STATUS Mental Status: Alert - VITAL SIGNS Vital Signs: Last Vital Signs Temp 97.4 09/05/20 1502 Pulse 90 09/05/20 1502 Resp 14 09/05/20 1502 BP 125/69 09/05/20 1502 Pulse Ox 100% 09/05/20 1502 - RESPIRATORY Respiratory Status: Respiratory Rate WNL, Airway Patent, O2 Saturation Stable - CARDIOVASCULAR CV Status: Pulse Rate WNL, Blood Pressure Stable - GASTROINTESTINAL GI Status: No Symptoms - POST OP HYDRATION Hydration Status: Adequate & Stable
--- NOTE | 2020-09-07 05:11 | PCM48HPAN ---
Post Anesthesia Note - EVALUATION WITHIN 48HRS OF ANESTHETIC Vital Signs in Normal Range: Yes Patient Participated in Evaluation: Yes Respiratory Function Stable: Yes Airway Patent: Yes Cardiovascular Function Stable: Yes Hydration Status Stable: Yes Pain Control Satisfactory: Yes Nausea and Vomiting Control Satisfactory: Yes Mental Status Recovered: Yes Vital Signs: Last Vital Signs Temp 37.0 C 09/05/20 15:55 Pulse 70 09/05/20 16:15 Resp 16 09/05/20 16:15 BP 112/76 09/05/20 16:15 Pulse Ox 98 09/05/20 16:15 - COMMENTS/OBSERVATIONS Free Text/Narrative:: Late entry: for 09/05/2020 [id number]
== END | disposition home or self-care (01) ==
LOC: JD.ED 09:50 → JD.SDS 13:18
PROVIDERS: ATTEND Surgery
DX: K35.30 Acute appendicitis with localized peritonitis, without perforation or gangrene (principal); K38.2 Diverticulum of appendix; Z88.1 Allergy status to other antibiotic agents; Z01.812 Encounter for preprocedural laboratory examination; Z20.822 Contact with and (suspected) exposure to COVID-19
CPT/HCPCS: 36415; 44970; 74177; 80053; 81001; 83690; 84703; 85025; 87635; 96374; 99285; J0330; J0694; J1100; J1885; J2250; J2405; J2704; J3010; J3490; J7030; J7120; Q9963; Q9967; 00840; 99140; 99284; U0002

== ENCOUNTER 2021-08-28 19:03 | Inpatient (IN) | payer BC ==
[2021-08-28] MEDS ORDERED: Misoprostol 25 MCG (1/4 of 100 MCG) Tab ONE (19:59)
[2021-08-28] MEDS ORDERED: metFORMIN 500 MG Tab PO ONE (20:52)
[2021-08-28] MEDS ORDERED: Nalbuphine HCl 10 MG/ 1ML Amp IVPUSH PRN (20:52)
[2021-08-28] MEDS ORDERED: Sodium Chloride 0.9% 10 ML Syringe FLUSH PRN (20:52)
[2021-08-28] MEDS ORDERED: Misoprostol 100 MCG Tab VAG PRN (20:57)
[2021-08-28] MEDS ORDERED: Sodium Chloride 0.9% 10 ML Syringe FLUSH SCH (21:00)
[2021-08-28] MEDS ORDERED: Oxytocin/Lactated Ringers 10 UNIT/1,000 ML BAG IV SCH (21:00)
[2021-08-28] MEDS ORDERED: fentaNYL 100 MCG/2 ML SDV EPIDUR PRN (21:07)
[2021-08-28] MEDS ORDERED: Bupivacaine/fentaNYL/NS 100 ML Bag EPIDUR PRN (21:07)
[2021-08-28] MEDS ORDERED: diphenhydrAMINE 50 MG/ML SDV IVPUSH PRN (21:07)
[2021-08-28] MEDS ORDERED: ePHEDrine 50 MG/ML SDV IVPUSH PRN (21:07)
[2021-08-29] MEDS ORDERED: Bupivacaine 0.25% 10 ML SDV ONE
[2021-08-29] MEDS ORDERED: Misoprostol 25 MCG (1/4 of 100 MCG) Tab VAG PRN (00:10)
[2021-08-29] MEDS: Lactated Ringers 1,000 ML IV SCH ×4 (04:20→07:02)
[2021-08-29] MEDS ORDERED: Terbutaline 1 MG/ML SDV ONE (06:00)
[2021-08-29] MEDS ORDERED: Terbutaline 1 MG/ML SDV SUBCUT ONE (06:04)
[2021-08-29] MEDS ORDERED: metFORMIN 500 MG Tab PO SCH (07:00)
[2021-08-29] MEDS ORDERED: Citric Acid/Sodium Citrate Solution 30 ML Cup ONE (07:17)
[2021-08-29] MEDS ORDERED: Metoclopramide 10 MG/2 ML SDV ONE (07:17)
[2021-08-29] MEDS ORDERED: Oxytocin 10 Units/1 ML SDV ONE (07:23)
[2021-08-29] MEDS ORDERED: Ondansetron 4 MG/2 ML SDV ONE (07:23)
[2021-08-29] MEDS ORDERED: Ketorolac 30 MG/ML SDV ONE (07:23)
[2021-08-29] MEDS ORDERED: ceFAZolin 2 GM Vial ONE (07:24)
[2021-08-29] MEDS ORDERED: fentaNYL 100 MCG/2 ML SDV ONE (07:24)
[2021-08-29] MEDS ORDERED: Sodium Bicarbonate 8.4% 50 MEQ/50 ML SDV ONE (07:24)
[2021-08-29] MEDS ORDERED: Lidocaine 2% with EPINEPHrine 1:200,000 20 ML SDV ONE (07:24)
[2021-08-29] MEDS ORDERED: Bupivacaine 0.5% 30 ML SDV ONE (07:25)
[2021-08-29] MEDS ORDERED: Azithromycin 500 MG in Sodium Chloride 0.9% 250 ML IV ONE (07:30)
[2021-08-29] MEDS ORDERED: Metoclopramide 10 MG/2 ML SDV IVPUSH ONE (07:30)
[2021-08-29] MEDS ORDERED: Lactated Ringers 1,000 ML IV SCH (07:30)
[2021-08-29] MEDS ORDERED: Citric Acid/Sodium Citrate Solution 30 ML Cup PO ONE (07:30)
[2021-08-29] MEDS ORDERED: ceFAZolin 2 GM in Sodium Chloride 0.9% 50 ML IV ONE (07:30)
[2021-08-29] MEDS ORDERED: Sodium Chloride 0.9% 10 ML Syringe FLUSH PRN (07:30)
[2021-08-29] MEDS ORDERED: Lactated Ringers 1,000 ML ONE (07:53)
[2021-08-29] MEDS ORDERED: Morphine PF 10 MG/10 ML SDV ONE (07:54)
[2021-08-29] MEDS ORDERED: Phenylephrine 1% 10 MG/ML SDV ONE (08:06)
[2021-08-29] MEDS ORDERED: Sodium Chloride 0.9% 100 ML ONE (08:06)
[2021-08-29] MEDS ORDERED: diphenhydrAMINE 50 MG/ML SDV IVPUSH PRN ×2 (08:17→09:45)
[2021-08-29] MEDS ORDERED: Ondansetron 4 MG/2 ML SDV IVPUSH PRN (08:17)
[2021-08-29] MEDS ORDERED: fentaNYL 100 MCG/2 ML SDV IVPUSH PRN (08:17)
[2021-08-29] MEDS ORDERED: Meperidine 50 MG/ML Vial IVPUSH PRN (08:17)
[2021-08-29] MEDS ORDERED: Sodium Chloride 0.9% 10 ML Syringe FLUSH SCH (09:00)
[2021-08-29] MEDS ORDERED: Oxytocin/Lactated Ringers 10 UNIT/1,000 ML BAG IV SCH (09:45)
[2021-08-29] MEDS ORDERED: ePHEDrine 50 MG/ML SDV IVPUSH PRN (09:45)
[2021-08-29] MEDS ORDERED: Magnesium Hydroxide 400 MG/5 ML Susp 30 ML Cup PO PRN (09:45)
[2021-08-29] MEDS ORDERED: Dextrose 5%-Lactated Ringers 1,000 ML IV SCH (09:45)
[2021-08-29] MEDS ORDERED: Naloxone 0.4 MG/ML SDV IVPUSH PRN (09:45)
[2021-08-29] MEDS: Ketorolac 30 MG/ML SDV IVPUSH SCH ×2 (14:39→20:51)
[2021-08-29] MEDS: Docusate Sodium 100 MG Cap PO SCH ×2 (18:55→20:51)
[2021-08-29] MEDS: Prenatal Multivitamin with Calcium/Folic Acid/Iron Tab PO SCH (18:55)
[2021-08-30] MEDS: Ketorolac 30 MG/ML SDV IVPUSH SCH (02:57)
[2021-08-30] MEDS: Prenatal Multivitamin with Calcium/Folic Acid/Iron Tab PO SCH ×2 (07:54→17:41)
[2021-08-30] MEDS: Docusate Sodium 100 MG Cap PO SCH ×3 (07:54→21:12)
[2021-08-30] MEDS: Acetaminophen/oxyCODONE 325-5 MG Tab PO PRN ×4 (07:54→22:47)
[2021-08-30] MEDS: Ibuprofen 600 MG Tab PO PRN ×2 (09:03→18:57)
[2021-08-31] MEDS: Acetaminophen/oxyCODONE 325-5 MG Tab PO PRN (07:54)
[2021-08-31] MEDS: Prenatal Multivitamin with Calcium/Folic Acid/Iron Tab PO SCH (07:55)
[2021-08-31] MEDS: Docusate Sodium 100 MG Cap PO SCH (07:55)
== END 2021-08-31 11:30 | disposition home or self-care (01) | DRG 540 ==
LOC: JD.OB 19:03 → OBSVTOIN 08-29 08:45 → JD.OB 08-29 11:46 → UNDODISIN 08-31 11:30
PROVIDERS: ADMIT Obstetrics & Gynecology; ATTEND Obstetrics & Gynecology
PROC: 10D00Z1 Extraction of Products of Conception, Low, Open Approach (ICD-10-PCS; principal; 2021-08-29)
PROC: 3E0P7VZ Introduction of Hormone into Female Reproductive, Via Natural or Artificial Opening (ICD-10-PCS; 2021-08-29)
DX: O24.425 Gestational diabetes mellitus in childbirth, controlled by oral hypoglycemic drugs (principal); Z37.0 Single live birth; O76 Abnormality in fetal heart rate and rhythm complicating labor and delivery; O99.344 Other mental disorders complicating childbirth; F41.9 Anxiety disorder, unspecified; F32.A Depression, unspecified; Z3A.39 39 weeks gestation of pregnancy
CPT/HCPCS: 01967; 01968; 36415; 51702; 59025; 82947; 85025; 86592; 86850; 86900; 86901; 94762; 99140; A9270-GY; C1726; J0456; J0690; J1885; J2274; J2300; J2370; J2405; J2590; J2765; J3010; J3105; J3490; J7050; J7120; J7121

== ENCOUNTER 2023-08-02 04:18 | Inpatient (IN) | payer BC ==
[2023-08-02] MEDS ORDERED: Oxytocin/Lactated Ringers 30 UNIT/500 ML BAG IV SCH ×2 (05:00→09:07)
[2023-08-02 05:33] LABS: BASOPHILS PERCENT AUTO 0.6 % (0.0-1.0); EOSINOPHILS ABSOLUTE AUTO 0.1 K/mm3 (0.0-0.4); HEMATOCRIT 33.7 % (37.0-47.0); HEMOGLOBIN 12.2 gm/dl (12.0-16.0); IMMATURE GRAN ABSOLUTE AUTO 0.06 K/mm3 (0.00-0.05); IMMATURE GRAN PERCENT AUTO 0.9 % (0.0-0.4); LYMPHOCYTES ABSOLUTE AUTO 1.3 K/mm3 (1.0-4.8); LYMPHOCYTES PERCENT AUTO 18.9 % (24.0-44.0); MEAN CORPUSCULAR HEMOGLOBIN 32.9 pg (28.0-32.0); MEAN CORPUSCULAR HGB CONC 36.2 g/dl (32.0-36.0); MEAN CORPUSCULAR VOLUME 90.8 fl (83.0-99.0); MEAN PLATELET VOLUME 9.7 fl (9.4-12.3); MONOCYTES ABSOLUTE AUTO 0.5 K/mm3 (0.0-0.8); MONOCYTES PERCENT AUTO 7.4 % (0.0-8.0); NEUTROPHILS PERCENT AUTO 71.2 % (41.0-71.0); PLATELET COUNT,PLT 158 K/mm3 (150-400); RED BLOOD CELL COUNT 3.71 M/mm3 (4.10-5.30); WHITE BLOOD CELL COUNT,WBC 6.99 K/mm3 (3.9-11.3)
[2023-08-02] MEDS ORDERED: ceFAZolin 2 GM Vial ONE (05:45)
[2023-08-02] MEDS ORDERED: Morphine PF 10 MG/10 ML SDV ONE (05:47)
[2023-08-02] MEDS ORDERED: Ondansetron 4 MG/2 ML SDV ONE (05:48)
[2023-08-02] MEDS ORDERED: Ketorolac 30 MG/ML SDV ONE (05:48)
[2023-08-02] MEDS ORDERED: ePHEDrine 50 MG/ML SDV ONE (05:48)
[2023-08-02] MEDS: Lactated Ringers 1,000 ML IV SCH (05:52)
[2023-08-02] MEDS ORDERED: Bupivacaine 0.5% 30 ML SDV ONE (06:00)
[2023-08-02] MEDS: Citric Acid/Sodium Citrate Solution 30 ML Cup PO ONE (06:01)
[2023-08-02] MEDS: Metoclopramide 10 MG/2 ML SDV IVPUSH ONE (06:01)
[2023-08-02] MEDS: Azithromycin 500 MG in Sodium Chloride 0.9% 250 ML IV ONE (06:04)
[2023-08-02] MEDS ORDERED: Oxytocin 10 Units/1 ML SDV ONE (06:36)
[2023-08-02] MEDS ORDERED: Ondansetron 4 MG/2 ML SDV IVPUSH PRN (07:27)
[2023-08-02] MEDS ORDERED: fentaNYL 100 MCG/2 ML SDV IVPUSH PRN (07:27)
[2023-08-02] MEDS ORDERED: diphenhydrAMINE 50 MG/ML SDV IVPUSH PRN ×2 (07:27→09:07)
[2023-08-02] MEDS ORDERED: Naloxone 0.4 MG/ML SDV IVPUSH PRN (09:07)
[2023-08-02] MEDS ORDERED: Magnesium Hydroxide 400 MG/5 ML Susp 30 ML Cup PO PRN (09:07)
[2023-08-02] MEDS ORDERED: ePHEDrine 50 MG/ML SDV IVPUSH PRN (09:07)
[2023-08-02] MEDS ORDERED: Acetaminophen/oxyCODONE 325-5 MG Tab PO PRN ×2 (09:07)
[2023-08-02] MEDS: Simethicone 80 MG Tab.Chew PO SCH (10:27)
[2023-08-02] MEDS: Docusate Sodium 100 MG Cap PO SCH (10:27)
[2023-08-02] MEDS: Prenatal Multivitamin with Calcium/Folic Acid/Iron Tab PO SCH (10:27)
[2023-08-02] MEDS: Dextrose 5%-Lactated Ringers 1,000 ML IV SCH (10:28)
[2023-08-02] MEDS: Clindamycin Phosphate in D5W 900 MG in Premix Bag 1 BAG IV ONE (11:09)
[2023-08-02] MEDS: Azithromycin 500 MG Vial ONE (11:10)
[2023-08-02] MEDS: ceFAZolin 2 GM in Sodium Chloride 0.9% 50 ML IV ONE (11:10)
[2023-08-02] MEDS: Ketorolac 30 MG/ML SDV IVPUSH SCH (14:21)
[2023-08-02] MEDS: Zolpidem 10 MG Tab PO PRN (20:57)
[2023-08-03 05:48] LABS: GROUP B STREP BY PCR NEGATIVE (NEGATIVE)
[2023-08-03 06:22] LABS: BASOPHILS PERCENT AUTO 0.4 % (0.0-1.0); EOSINOPHILS ABSOLUTE AUTO 0.1 K/mm3 (0.0-0.4); EOSINOPHILS PERCENT AUTO 0.9 % (0.0-6.0); HEMATOCRIT 29.6 % (37.0-47.0); HEMOGLOBIN 10.4 gm/dl (12.0-16.0); IMMATURE GRAN ABSOLUTE AUTO 0.06 K/mm3 (0.00-0.05); IMMATURE GRAN PERCENT AUTO 0.7 % (0.0-0.4); LYMPHOCYTES ABSOLUTE AUTO 1.4 K/mm3 (1.0-4.8); LYMPHOCYTES PERCENT AUTO 17.9 % (24.0-44.0); MEAN CORPUSCULAR HEMOGLOBIN 32.7 pg (28.0-32.0); MEAN CORPUSCULAR HGB CONC 35.1 g/dl (32.0-36.0); MEAN CORPUSCULAR VOLUME 93.1 fl (83.0-99.0); MEAN PLATELET VOLUME 10.1 fl (9.4-12.3); MONOCYTES ABSOLUTE AUTO 0.7 K/mm3 (0.0-0.8); NEUTROPHILS ABSOLUTE AUTO 5.7 K/mm3 (1.8-7.7); NEUTROPHILS PERCENT AUTO 71.1 % (41.0-71.0); PLATELET COUNT,PLT 145 K/mm3 (150-400); RED BLOOD CELL COUNT 3.18 M/mm3 (4.10-5.30); WHITE BLOOD CELL COUNT,WBC 8.03 K/mm3 (3.9-11.3)
[2023-08-03] MEDS: Ibuprofen 600 MG Tab PO SCH (07:49)
== END 2023-08-03 10:50 | disposition home or self-care (01) | DRG 540 ==
LOC: JD.OBCHECK 04:18 → JD.US 04:18 → JD.OB 04:23 → JD.OBCHECK 04:54 → JD.OB 05:31 → OBSVTOIN 07:30
PROVIDERS: ADMIT Obstetrics & Gynecology; ATTEND Obstetrics & Gynecology
PROC: 10D00Z1 Extraction of Products of Conception, Low, Open Approach (ICD-10-PCS; principal; 2023-08-02 06:00)
DX: O42.913 Preterm premature rupture of membranes, unspecified as to length of time between rupture and onset of labor, third trimester (principal); O24.425 Gestational diabetes mellitus in childbirth, controlled by oral hypoglycemic drugs; O99.344 Other mental disorders complicating childbirth; F41.9 Anxiety disorder, unspecified; O34.211 Maternal care for low transverse scar from previous cesarean delivery; Z37.0 Single live birth; Z88.0 Allergy status to penicillin; Z98.890 Other specified postprocedural states; Z90.49 Acquired absence of other specified parts of digestive tract; Z3A.36 36 weeks gestation of pregnancy
CPT/HCPCS: 36415; 59025; 82947; 85025; 86592; 86850; 86900; 86901; 87653; 94762; A9270-GY; J0456; J0665; J0690; J1885; J2274; J2405; J2590; J2765; J3490; J7050; J7120; J7121

== ENCOUNTER 2023-10-08 11:00 | Emergency (ER) | payer BC ==
[2023-10-08] MEDS: Sodium Chloride 0.9% 10 ML Syringe FLUSH PRN (11:20)
[2023-10-08 11:40] LABS: APPEARANCE,URINE CLEAR (Clear); BILIRUBIN,URINE NEGATIVE (Negative); COLOR,URINE YELLOW (Yellow); GLUCOSE,URINE NEGATIVE (Negative); KETONES,URINE NEGATIVE (Negative); LEUKOCYTE ESTERASE,URINE NEGATIVE (Negative); NITRITE,URINE NEGATIVE (Negative); OCCULT BLOOD,URINE NEGATIVE (Negative); PH,URINE 7.5 (5.0-8.0); PROTEIN,URINE NEGATIVE (Negative); UROBILINOGEN,URINE 0.2 (0.2-1.0)
[2023-10-08 11:46] LABS: BASOPHILS PERCENT AUTO 0.5 % (0.0-1.0); EOSINOPHILS PERCENT AUTO 0.4 % (0.0-6.0); HEMATOCRIT 36.8 % (37.0-47.0); IMMATURE GRAN ABSOLUTE AUTO 0.02 K/mm3 (0.00-0.05); IMMATURE GRAN PERCENT AUTO 0.4 % (0.0-0.4); LYMPHOCYTES ABSOLUTE AUTO 1.3 K/mm3 (1.0-4.8); LYMPHOCYTES PERCENT AUTO 23.8 % (24.0-44.0); MEAN CORPUSCULAR HEMOGLOBIN 32.1 pg (28.0-32.0); MEAN CORPUSCULAR HGB CONC 35.6 g/dl (32.0-36.0); MEAN CORPUSCULAR VOLUME 90.2 fl (83.0-99.0); MEAN PLATELET VOLUME 10.2 fl (9.4-12.3); MONOCYTES ABSOLUTE AUTO 0.6 K/mm3 (0.0-0.8); MONOCYTES PERCENT AUTO 9.9 % (0.0-8.0); NEUTROPHILS ABSOLUTE AUTO 3.7 K/mm3 (1.8-7.7); PLATELET COUNT,PLT 142 K/mm3 (150-400); RED BLOOD CELL COUNT 4.08 M/mm3 (4.10-5.30); WHITE BLOOD CELL COUNT,WBC 5.63 K/mm3 (3.9-11.3)
[2023-10-08 11:47] LABS: HEMOGLOBIN 13.1 gm/dl (12.0-16.0)
[2023-10-08 12:13] LABS: A/G RATIO 1.2 (1-2); ALBUMIN 3.7 g/dl (3.4-5.0); ANION GAP 13.8 (5-15); BILIRUBIN TOTAL 1.4 mg/dL (0.2-1.0); BUN/CREATININE RATIO 22.9 (14-18); C-REACTIVE PROTEIN 2.42 mg/dL (<0.30); CALCIUM 8.8 mg/dL (8.5-10.1); CREATININE 0.7 mg/dL (0.55-1.02); EST CRCL DRUG DOSING (CG) 88.68 mL/min; POTASSIUM,K 3.8 mEq/L (3.5-5.1); PROTEIN TOTAL,TP 6.9 g/dl (6.4-8.2)
[2023-10-08 12:19] LABS: LACTIC ACID 0.7 mmol/L (0.4-2.0)
[2023-10-08] MEDS ORDERED: Iopamidol 612 MG/ML 100 ML Bottle IVPUSH ONE (13:13)
== END 2023-10-08 14:35 | disposition home or self-care (01) ==
LOC: JD.ED 11:00
DX: K59.00 Constipation, unspecified (principal); Z90.49 Acquired absence of other specified parts of digestive tract; Z88.0 Allergy status to penicillin
CPT/HCPCS: 36415; 74177; 80053; 81003; 81025; 83605; 83690; 85025; 86140; 87635; 99284; J3490; U0002